=== PATIENT | male | born 1950 | race Caucasian/White ===

== ENCOUNTER → 2021-02-08 | Outpatient (CLI) | payer MEDICARE ==
[~2021-02-08] MED LIST: ALBUTEROL INH; ALDACTONE25 MG PO; ASPIRIN81 MG PO; CALTRATE 600 +1 EAC1 PO; CALTRATE 600+D1 EAC1 PO; ECOTRIN81 MG PO; K-DUR TAB 10 M10 MEQ PO; LASIX40 MG PO; LIPITOR20 MG PO; NITROGLYCERIN0.4 MG SL; NITROSTAT 0.40.4 MG SL; PLAVIX 75 MG TA75 MG PO; PLAVIX75 MG PO; POTASSIUM CHLO10 ME2 PO; ROBITUSSIN DM473 ML PO; SYNTHROID88 MCG PO; TESSALON PERLE100 MG PO; TOPROL XL25 MG PO; VENTOLIN HFA 66.7 GM INH; VENTOLIN/PROVE0.5 ML INH; VITAMIN B-121000 MCG PO; XOPENEX CO1.25 MG/0. INH; [UNRECOGNIZED DRUG - CODE] PO
[2021-02-08 08:52] LABS: HEMOGLOBIN 11.8 gm/dl (14.0-17.5); RED BLOOD COUNT 3.89 M/UL (4.20-5.50)
== END ==
LOC: CT 06:58
PROVIDERS: Internal Medicine Pulmonary Disease
DX: C34.32 Malignant neoplasm of lower lobe, left bronchus or lung (principal); J93.9 Pneumothorax, unspecified; Z79.899 Other long term (current) drug therapy; Z20.822 Contact with and (suspected) exposure to COVID-19
CPT/HCPCS: 71045; 71046; 85027; 85610; J1642; U0002